=== PATIENT | male | born 1950 | race Caucasian/White ===

== ENCOUNTER → 2018-07-24 | Outpatient (CLI) | payer OTHER ==
--- NOTE | 2018-07-24 17:33 | PCVCIMAG ---
APPROVED REPORT Study performed: 07/24/2018 12:48:56 EXAM: Comprehensive 2D, Doppler, and color-flow Echocardiogram Patient Location: Echo lab Status: routine BSA: 2.54 HR: 73 bpmBP: 164/84 mmHg Rhythm: NSR Other Information Study Quality: Adequate Risk Factors: Cardiac Risk Factors: HTN, DM, Hyperlipidemia Indications Chest Pain 2D Dimensions IVSd: 11.90 (7-11mm)LVOT Diam: 23.28 (18-24mm) LVDd: 44.30 mm PWd: 11.69 (7-11mm) LVDs: 26.87 (25-40mm) Left Atrium: 44.88 (27-40mm) Aortic Root: 33.63 mm LV Single Plane 4CH: 56.99 % LV Single Plane 2CH: 51.89 % Biplane EF: 53.9 % Volumes Left Atrial Volume (Systole) Single Plane 4CH: 91.70 mLSingle Plane 2CH: 65.11 mL LA ESV Index: 31.00 mL/m2 Aortic Valve AoV Peak Rubén.: 2.13 m/s AO Peak Gr.: 18.08 mmHgLVOT Max P.75 mmHg LVOT Max V: 1.35 m/s MIKE Vmax: 2.71 cm2 Mitral Valve E/A Ratio: 1.2 MV Decel. Time: 233.31 ms MV E Max Rubén.: 0.63 m/s MV A Rubén.: 0.51 m/s IVRT: 69.20 ms Pulmonary Valve PV Peak Rubén.: 1.11 m/sPV Peak Gr.: 4.94 mmHg Pulmonary Vein P Vein S: 0.39 m/sP Vein A: 0.36 m/s P Vein D: 0.47 m/sP Vein A Dur.: 134.9 msec P Vein S/D Ratio: 0.83 Tricuspid Valve TR Peak Rubén.: 2.72 m/s TR Peak Gr.: 29.67 mmHg TV Vmax: 0.54 m/s Left Ventricle The left ventricle is normal size. There is normal LV segmental wall motion. Mild concentric left ventricular hypertrophy. Left ventricular systolic function is normal. The left ventricular ejection fraction is within the normal range. LVEF is 55%. Grade I - abnormal relaxation pattern. Right Ventricle The right ventricle is normal size. The right ventricular systolic function is normal. Atria Left atrium is moderately dilated. The right atrium size is normal. Aortic Valve Moderate aortic valve sclerosis. No aortic regurgitation is present. There is no aortic valvular stenosis. Mitral Valve The mitral valve is normal in structure. There is no mitral valve regurgitation noted. No evidence of mitral valve stenosis. Tricuspid Valve The tricuspid valve is normal in structure. Mild tricuspid regurgitation with PAP of 37 mmHg. Pulmonic Valve The pulmonary valve is normal in structure. Mild pulmonic regurgitation. Great Vessels The aortic root is normal in size. IVC is normal in size and collapses >50% with inspiration. Pericardium There is no pericardial effusion. There is no pleural effusion. <Conclusion> The left ventricle is normal size. Mild concentric left ventricular hypertrophy. LVEF is 55%. Grade I - abnormal relaxation pattern. The right ventricle is normal size. Left atrium is moderately dilated. Moderate aortic valve sclerosis. There is no aortic valvular stenosis. There is no mitral valve regurgitation noted. Mild tricuspid regurgitation with PAP of 37 mmHg. The aortic root is normal in size. There is no pericardial effusion.
== END | disposition home or self-care (01) ==
LOC: PCVCIMAG 12:41
PROVIDERS: ATTEND Internal Medicine Cardiovascular Disease
DX: I07.1 Rheumatic tricuspid insufficiency (principal); I26.09 Other pulmonary embolism with acute cor pulmonale; I10 Essential (primary) hypertension; E78.00 Pure hypercholesterolemia, unspecified; E11.9 Type 2 diabetes mellitus without complications; M54.9 Dorsalgia, unspecified; G89.29 Other chronic pain; D68.59 Other primary thrombophilia; R06.00 Dyspnea, unspecified
CPT/HCPCS: 93306